=== PATIENT | female | born 1960 | race Two or more races ===

== ENCOUNTER 2018-04-28 09:37 | Outpatient (CLI) | payer OTHER | END 2018-04-28 09:51 | disposition home or self-care (01) | LOC: RAD 501 09:37 | DX: M79.644 Pain in right finger(s) (principal) ==

== ENCOUNTER 2018-07-14 07:54 | Outpatient (CLI) | payer OTHER | END 2018-07-14 14:55 | disposition home or self-care (01) | LOC: LAB 07:54 | DX: E55.9 Vitamin D deficiency, unspecified (principal); M85.9 Disorder of bone density and structure, unspecified; E21.2 Other hyperparathyroidism; E88.89 Other specified metabolic disorders; M81.8 Other osteoporosis without current pathological fracture; E56.1 Deficiency of vitamin K; E03.8 Other specified hypothyroidism ==

== ENCOUNTER 2019-05-22 17:08 | Outpatient (CLI) | payer OTHER | END 2019-05-22 17:13 | disposition home or self-care (01) | LOC: RAD 17:08 | DX: M25.571 Pain in right ankle and joints of right foot (principal) ==

== ENCOUNTER 2024-06-11 06:33 | Outpatient (CLI) | payer OTHER | END 2024-06-11 06:56 | disposition home or self-care (01) | LOC: LAB 06:33 | PROVIDERS: ATTEND Orthopaedic Surgery | DX: E56.1 Deficiency of vitamin K (principal) ==